=== PATIENT | female | born 1995 | race American Indian/Alaskan Native ===

== ENCOUNTER 2018-05-19 15:46 | Emergency (ER) | payer OTHER ==
[2018-05-19 16:12] VITALS: BP 135/78
[2018-05-19 17:52] LABS: HCG Qualitative,Urine Negative (Negative)
[2018-05-19] MEDS ORDERED: ZOFRAN ODT PO ONE (17:57)
[2018-05-19] MEDS ORDERED: BACTRIM DS PO ONE (17:58)
[2018-05-19 18:01] LABS: Bacteria,Urine 1+ /HPF (Negative); Bilirubin,Urine NEG (Negative); Blood,Urine NEG (Negative); Color,Urine Amber (Yellow); Mucus,Urine 3+ /HPF
[2018-05-19] MEDS ORDERED: NORCO 5/325 PO ONE (18:01)
[2018-05-19] MEDS ORDERED: ZITHROMAX PO ONE (18:04)
[2018-05-19] MEDS ORDERED: XYLOCAINE 1% MPF 5 mL INFILTRATI ONE (18:04)
[2018-05-19] MEDS ORDERED: ROCEPHIN IM ONE (18:04)
[2018-05-19] MEDS ORDERED: NACL 0.9% 1000 ML 1,000 ML IV ONE (18:04)
--- NOTE | 2018-05-19 18:06 | Emergency Department Report ---
ED Dysuria HPI - HPI Chief Complaint: Nausea/Vomiting/Diarrhea Stated Complaint: cyst; might be Time Seen by Provider: 05/19/18 16:27 Duration: 5 Days Severity: Mild Symptoms: Dysuria: Yes, Frequency: No, Suprapubic Pain: No, Flank Pain: No, Fever: No, Hematuria: No, Abdominal Pain: No, Previous UTI's: No Other History: Pt is a 22 yo AA female who was here less than 1 m ago with same complaints. She was treated with antibiotics but did not follow up with obgyn. she is ambulatory, taking po and with out fever ED Review of Systems ROS: Stated complaint: BODY ACHES/CHILLS/CYST PAIN Other details as noted in HPI Comment: All other systems reviewed and negative Constitutional: denies: chills Eyes: denies: eye pain ENT: denies: throat pain Respiratory: denies: cough Cardiovascular: denies: dyspnea on exertion Endocrine: denies: excessive sweating Gastrointestinal: as per HPI, nausea, vomiting. denies: abdominal pain Genitourinary: as per HPI, other (cyst). denies: urgency, dysuria Musculoskeletal: denies: back pain Skin: as per HPI, lesions Neurological: denies: weakness Psychiatric: denies: anxiety Hematological/Lymphatic: denies: easy bleeding ED Past Medical Hx - Past Medical History Previous Medical History?: Yes Additional medical history: Bartholin's cysts, anemia - Surgical History Past Surgical History?: Yes Additional Surgical History: x 2, wisdom teeth - Social History Smoking Status: Never Smoker Substance Use Type: Alcohol, Marijuana - Medications Home Medications: Home Medications Medication Instructions Recorded Confirmed Last Taken Type Sulfamethoxazole/Trimethoprim 1 each PO BID #10 tablet 05/19/18 Unknown Rx [Bactrim DS TAB] Dysuria Exam - Exam General: Vital signs noted. No distress. Alert and acting appropriately. Exam: Yes Moist Mucous Membranes, No CVA Tenderness, No Abdominal Tenderness, No Rigidity or Guarding Exam: BARTHOLANS CYST/MASS- AT LEAST 2 MONTHS- FIRM TO COUGH Labs: Lab Results 05/19/18 Range/Units 17:36 Ur Reducing Substances Not Reportable Urine Bilirubin Neg (Negative) Urine Ictotest Not Reportable Urine RBC (Auto) 14.0 (0.0-6.0) /HPF U Epithel Cells (Auto) 25.0 H (0-13.0) /HPF Urine HCG, Qual Negative (Negative) pt will be treated for STI/UTI/Cyst Pt is going to follow up with her obgyn ED Course Vital Signs 05/19/18 16:08 Temperature 98.7 F Pulse Rate 86 Respiratory 18 Rate Blood Pressure 135/78 O2 Sat by Pulse 99 Oximetry ED Medical Decision Making - Medical Decision Making barthol. cyst- for over 1 month ua noted preg neg will treat patient empiracally for STI she is going to have to follow up with obgyn for her chronic cyst Labs 05/19/18 17:36 Urine Color [place] Urine Turbidity Cloudy Urine pH 5.0 Ur Specific [place] 1.030 Urine Protein 30 mg/dl Urine Glucose (UA) Neg Urine Ketones 80 Urine Blood Neg Urine Nitrite Neg Ur Reducing Substances Not Reportable Urine Bilirubin Neg Urine Ictotest Not Reportable Urine Urobilinogen 4.0 Ur Leukocyte Esterase Mod Urine WBC (Auto) 24.0 H Urine RBC (Auto) 14.0 U Epithel Cells (Auto) 25.0 H Urine Bacteria (Auto) 1+ Urine Mucus 3+ Urine HCG, Qual Negative - Differential Diagnosis ro UTI/ STI Critical care attestation.: If time is entered above; I have spent that time in minutes in the direct care of this critically ill patient, excluding procedure time. ED Disposition Clinical Impression: Vaginitis, Bartholin cyst Disposition: - TO HOME OR SELFCARE Is pt being admited?: No Does the pt Need Aspirin: No Condition: Stable Additional Instructions: safe sex med as ordered today follow up with obgyn for this cyst- you have been in ED the last 2 months for this- you need to see a specialist MOTRIN OR TYLENOL FOR PAIN OR FEVER NEGATIVE TODAY Referrals: PRIMARY CARE, [Primary Care Provider] - 3-5 Days LEATHA JOSUE MD [Staff Physician] - 3-5 Days Time of Disposition: 18:09
[2018-05-19] MEDS ORDERED: DIFLUCAN PO ONE (18:08)
== END 2018-05-19 19:19 | disposition home or self-care (01) ==
LOC: ED 15:46
DX: N76.0 Acute vaginitis (principal); N75.0 Cyst of Bartholin's gland
CPT/HCPCS: 81001; 81025; 96372; 99283; J0696; J7030; Q0162

== ENCOUNTER 2020-02-01 22:14 | Emergency (ER) | payer SELFPAY ==
[2020-02-01 23:02] VITALS: BP 131/74
[2020-02-01 23:34] LABS: Bilirubin,Urine NEG (Negative); Blood,Urine NEG (Negative); Color,Urine Yellow (Yellow); Mucus,Urine FEW /HPF
[2020-02-01 23:36] LABS: HCG Qualitative,Urine Negative (Negative)
[2020-02-02] MEDS ORDERED: traMADol 50 MG TAB PO ONE (00:56)
[2020-02-02] MEDS ORDERED: SULFAMETHOXAZOLE/TRIMETHOPRIM 800/160MG DS TAB PO ONE (00:57)
--- NOTE | 2020-02-02 01:01 | Emergency Department Report ---
ED General Adult HPI - General Chief complaint: Urogenital-Female Stated complaint: VAGINAL CYST PELVIC BACK PAIN Time Seen by Provider: 02/02/20 00:19 Source: patient Mode of arrival: Ambulatory Limitations: No Limitations - History of Present Illness Initial comments: Patient presents emergency department with a vaginal cyst that has been present for the last couple of days. Patient states that she has had these multiple times in the past but the one incision and drainage done by gynecology. Patient denies abdominal pain, vaginal bleeding, vaginal discharge or ulcers of the vaginal region. -: Gradual Location: genitals Radiation: non-radiation Severity scale (0 -10): 4 Quality: constant Consistency: constant Improves with: none Worsens with: none Associated Symptoms: denies other symptoms Treatments Prior to Arrival: none - Related Data Previous Rx's Medication Instructions Recorded Last Taken Type Sulfamethoxazole/Trimethoprim 1 each PO BID #10 tablet 05/19/18 Unknown Rx [Bactrim DS TAB] Allergies Allergy/AdvReac Type Severity Reaction Status Date / Time No Known Allergies Allergy Verified 05/19/18 16:12 ED Review of Systems ROS: Stated complaint: VAGINAL CYST PELVIC BACK PAIN Other details as noted in HPI Constitutional: denies: chills, fever Eyes: denies: eye pain, eye discharge, vision change ENT: denies: ear pain, throat pain Respiratory: denies: cough, shortness of breath, wheezing Cardiovascular: denies: chest pain, palpitations Endocrine: no symptoms reported Gastrointestinal: denies: abdominal pain, nausea, diarrhea Genitourinary: denies: urgency, dysuria, discharge Musculoskeletal: denies: back pain, joint swelling, arthralgia Skin: denies: rash, lesions Neurological: denies: headache, weakness, paresthesias Psychiatric: denies: anxiety, depression Hematological/Lymphatic: denies: easy bleeding, easy bruising ED Past Medical Hx - Past Medical History Previous Medical History?: Yes Additional medical history: Bartholin's cysts, anemia - Surgical History Past Surgical History?: Yes Additional Surgical History: x 2, wisdom teeth - Social History Smoking Status: Never Smoker Substance Use Type: None - Medications Home Medications: Home Medications Medication Instructions Recorded Confirmed Last Taken Type Sulfamethoxazole/Trimethoprim 1 each PO BID #10 tablet 05/19/18 Unknown Rx [Bactrim DS TAB] ED Physical Exam - General Limitations: No Limitations General appearance: alert, in no apparent distress - Head Head exam: Present: atraumatic, normocephalic - Eye Eye exam: Present: normal appearance - ENT ENT exam: Present: mucous membranes moist - Neck Neck exam: Present: normal inspection - Respiratory Respiratory exam: Present: normal lung sounds bilaterally. Absent: respiratory distress - Cardiovascular Cardiovascular Exam: Present: regular rate, normal rhythm. Absent: systolic murmur, diastolic murmur, rubs, gallop - GI/Abdominal GI/Abdominal exam: Present: soft, normal bowel sounds - External exam: Present: other (Enlargement of the labia majora consistent with a Bartholin cyst. Chaperoned by electroencephalographic technician Dial) - Extremities Exam Extremities exam: Present: normal inspection - Back Exam Back exam: Present: normal inspection - Neurological Exam Neurological exam: Present: alert, oriented X3, CN II-XII intact. Absent: motor sensory deficit - Psychiatric Psychiatric exam: Present: normal affect, normal mood - Skin Skin exam: Present: warm, dry, intact, normal color. Absent: rash ED Course Vital Signs 02/01/20 22:59 Temperature 99.4 F Pulse Rate 91 H Respiratory 20 Rate Blood Pressure 131/74 O2 Sat by Pulse 99 Oximetry ED Medical Decision Making - Medical Decision Making discussed plan of care with patient Critical care attestation.: If time is entered above; I have spent that time in minutes in the direct care of this critically ill patient, excluding procedure time. ED Disposition Clinical Impression: Bartholin cyst Disposition: DC-01 TO HOME OR SELFCARE Is pt being admited?: No Does the pt Need Aspirin: No Condition: Stable Instructions: Bartholin Cyst (ED) Additional Instructions: return if worse Referrals: PRIMARY CARE [Primary Care Provider] - 3-5 Days [facility] [Provider Group] - 3-5 Days [facility] [Provider Group] - 3-5 Days [facility] [Provider Group] - 3-5 Days Time of Disposition: 00:59
== END 2020-02-02 01:26 | disposition home or self-care (01) ==
LOC: ED 22:14
DX: N75.0 Cyst of Bartholin's gland (principal); Z79.899 Other long term (current) drug therapy; Z98.890 Other specified postprocedural states
CPT/HCPCS: 81001; 81025; 87086; 99283